=== PATIENT | male | born 1990 | race Caucasian/White ===

== ENCOUNTER 2019-01-18 20:16 | Emergency (ER) | payer BC ==
[2019-01-18] MEDS ORDERED: LIDOCAINE 1% 20 ML MDV ONE (20:29)
[2019-01-18] MEDS ORDERED: TETANUS & DIPHTHERIA TOX,ADULT 0.5 ML VIAL ONE (20:29)
--- NOTE | 2019-01-18 20:54 | RAD REPORT ---
EXAM DESCRIPTION: CT - [facility] - 01/18/2019 8:44 pm CLINICAL HISTORY: Trauma, head and neck injury. head injury COMPARISON: No comparisons TECHNIQUE: Axial 5 mm thick images of the head were obtained. Axial 2 mm thick images of the cervical spine were obtained with sagittal and coronal reconstruction images generated and reviewed. All CT scans are performed using dose optimization technique as appropriate and may include automated exposure control or mA/KV adjustment according to patient size. FINDINGS: CT HEAD WITHOUT CONTRAST: No acute hemorrhage, hydrocephalus or extra-axial collection is identified.No areas of brain edema or midline shift. The paranasal sinuses and mastoids are clear.The calvarium is intact. CT CERVICAL SPINE WITHOUT CONTRAST: No fracture or subluxation.No prevertebral soft tissues swelling is identified. IMPRESSION: No acute intracranial or cervical spine findings.
--- NOTE | 2019-01-18 21:27 | ER ---
Nurse's Notes [facility] Name: Kilo Moses Age: 29 yrs Sex: Male : 1990 Arrival Date: 01/18/2019 Time: 20:17 Bed 19 Private MD: Diagnosis: Right Eyebrow Laceration Presentation: 01/18 20:17 Presenting complaint: Patient states: I was angry and slammed a metal bat on the cc3 ground, It bounced up and hit me in the face. Laceration to right eyebrow, bleeding controlled. Transition of care: patient was not received from another setting of care. Complicating Factors: There are no complicating factors for this patient. Onset of symptoms was January 18, 2019. Risk Assessment: Do you want to hurt yourself or someone else? Patient reports no desire to harm self or others. Initial Sepsis Screen: Does the patient meet any 2 criteria? No. Patient's initial sepsis screen is negative. Does the patient have a suspected source of infection? No. Patient's initial sepsis screen is negative. Care prior to arrival: None. 20:17 Method Of Arrival: EMS: [facility] cc3 20:17 Acuity: JOSE 3 cc3 Triage Assessment: 20:25 General: Appears in no apparent distress. uncomfortable, Behavior is calm, cooperative, cc3 appropriate for age. Pain: Complains of pain in outer aspect of right eyebrow. Injury Description: Laceration sustained to outer aspect of right eyebrow is clean, superficial, 0.5 to 2.5 cm long, not bleeding, was sustained 30-60 minutes ago. is bleeding a small amount a dressing was applied. Historical: - Allergies: 20:19 No Known Allergies; cc3 - PMHx: 20:19 None; cc3 - Immunization history:: Adult Immunizations up to date. - Social history:: Smoking status: unknown. - Ebola Screening: : No symptoms or risks identified at this time. Screenin:25 Abuse screen: Denies threats or abuse. Denies injuries from another. Nutritional cc3 screening: No deficits noted. Tuberculosis screening: No symptoms or risk factors identified. Fall Risk Ambulatory Aid- None/Bed Rest/Nurse Assist (0 pts). Gait- Normal/Bed Rest/Wheelchair (0 pts) Mental Status- Oriented to own ability (0 pts). Assessment: 20:25 General: Appears in no apparent distress. uncomfortable, Behavior is calm, cooperative, cc3 appropriate for age. Pain: Complains of pain in outer aspect of right eyebrow. Neuro: Level of Consciousness is awake, alert, obeys commands, Oriented to person, place, time, situation, Appropriate for age Brand Strategist are equal bilaterally Moves all extremities. Gait is steady, Speech is normal, Facial symmetry appears normal, Pupils are PERRLA, Intact. Cardiovascular: Denies chest pain, Capillary refill < 3 seconds Patient's skin is warm and dry. Respiratory: Airway is patent Respiratory effort is even, unlabored, Respiratory pattern is regular, symmetrical. GI: Abdomen is round non-distended. : No signs and/or symptoms were reported regarding the genitourinary system. EENT: No signs and/or symptoms were reported regarding the EENT system. Derm: Skin is intact, is healthy with good turgor, Skin is pink, warm \T\ dry. normal. Musculoskeletal: Circulation, motion, and sensation intact. Range of motion: intact in all extremities. Injury Description: Laceration sustained to outer aspect of right eyebrow is clean, superficial, 0.5 to 2.5 cm long, not bleeding, was sustained 30-60 minutes ago. is bleeding a small amount. 21:40 Reassessment: Patient appears in no apparent distress at this time. Patient and/or cc3 family updated on plan of care and expected duration. Pain level reassessed. Patient is alert, oriented x 3, equal unlabored respirations, skin warm/dry/pink. DENIZ Montoya checked the wound suturing done by MANUEL Macedo and discharged the patient home, no prescription given. No IV cannula in situ. Patient left ER vitally stable and ambulatory. NO valuables left in the patient's room. Patient denies pain at this time. Patient states feeling better. Patient states symptoms have improved. Vital Signs: 20:19 BP 119 / 76; Pulse 83; Resp 16; Pulse Ox 98% on R/A; Weight 108.86 kg; Height 6 ft. 5 cc3 in. (195.58 cm); 21:30 BP 121 / 69; Pulse 80; Resp 16 S; Pulse Ox 99% on R/A; cc3 20:19 Body Mass Index 28.46 (108.86 kg, 195.58 cm) cc3 ED Course: 20:17 Patient arrived in ED. cc3 20:18 Triage completed. cc3 20:18 Shady Montoya PA is PHCP. [facility] 20:18 Mika Rankin MD is Attending Physician. [facility] 20:19 Arm band placed on right wrist. cc3 20:25 Elizabeth Irene is Primary Nurse. cc3 20:25 Patient has correct armband on for positive identification. Bed in low position. Call cc3 light in reach. Side rails up X 1. Pulse ox on. NIBP on. 21:00 Assist provider with laceration repair on outer aspect of right eyebrow that was cc3 between 2.6 to 7.5 cm using sutures. Set up tray. Performed by Shady GUAMAN Dressed with 4X4s, Patient tolerated well. Patient did not have IV access during this emergency room visit. 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 Exp: cc3 09/16/2020. Lot #: [id number]. } Route: IM; Site: right deltoid; 21:00 Follow up: Response: No adverse reaction cc3 21:00 Drug: Lidocaine (1 %) 20 ml {Note: administered by MANUEL Macedo.} Volume: 20 ml; Route: cc3 Infiltration; Site: affected area; 21:30 Follow up: Response: No adverse reaction cc3 Outcome: 21:26 Discharge ordered by . mika 21:40 Patient left the ED. cc3 21:40 Discharged to home ambulatory, with family. cc3 21:40 Condition: stable 21:40 Discharge instructions given to patient, Instructed on discharge instructions, follow up and referral plans. Demonstrated understanding of instructions, follow-up care. Signatures: Shady Montoya PA PA jmm Cordel, Charlene cc3
--- NOTE | 2019-01-18 21:27 | EDPHYS ---
Physician Documentation [facility] Name: Kilo Moses Age: 29 yrs Sex: Male : 1990 Arrival Date: 01/18/2019 Time: 20:17 Bed 19 Private MD: ED Physician Mika Rankin HPI: 01/18 20:20 This 29 yrs old Male presents to ER via EMS with complaints of Laceration To m Head. 20:20 The patient or guardian reports injury, a laceration. The complaints affect the outer jmm aspect of right eyebrow. Onset: The symptoms/episode began/occurred acutely, just prior to arrival. Associated signs and symptoms: Loss of consciousness: This patient did not experience any loss of consciousness. Pertinent positives: patient admits to or smells of alcohol consumption, Pertinent negatives: neck pain. Patient states hitting his head after slamming softball bat against the ground hitting his face. Denies LOC. Historical: - Allergies: 20:19 No Known Allergies; cc3 - PMHx: 20:19 None; cc3 - Immunization history:: Adult Immunizations up to date. - Social history:: Smoking status: unknown. - Ebola Screening: : No symptoms or risks identified at this time. ROS: 20:20 Constitutional: Negative for fever, chills, and weight loss, Neck: Negative for injury, jmm pain, and swelling, Cardiovascular: Negative for chest pain, palpitations, and edema, Respiratory: Negative for shortness of breath, cough, wheezing, and pleuritic chest pain. 20:20 Skin: Positive for laceration(s). 20:20 Neuro: Negative for headache. 20:20 All other systems are negative. Exam: 20:20 Constitutional: This is a well developed, well nourished patient who is awake, alert, jmm and in no acute distress. 20:20 Eyes: EOMI, no conjunctival erythema appreciated ENT: Moist Mucus Membranes Neck: Trachea midline, Supple Chest/axilla: Normal chest wall appearance and motion. Cardiovascular: Regular rate and rhythm. No edema appreciated Respiratory: Normal respirations, no respiratory distress appreciated Abdomen/GI: Non distended, soft Back: Normal ROM 20:20 MS/ Extremity: Moves all extremities, no obvious deformities appreciated, no edema noted to the lower extremities Neuro: Awake and alert, normal gait Psych: Behavior is normal, Mood is normal, Patient is cooperative and pleasant 20:20 Head/face: 3 cm laceration noted to the right eyebrow. 20:20 Skin: 3 cm laceration noted to the right eyebrow. Vital Signs: 20:19 BP 119 / 76; Pulse 83; Resp 16; Pulse Ox 98% on R/A; Weight 108.86 kg; Height 6 ft. 5 cc3 in. (195.58 cm); 21:30 BP 121 / 69; Pulse 80; Resp 16 S; Pulse Ox 99% on R/A; cc3 20:19 Body Mass Index 28.46 (108.86 kg, 195.58 cm) cc3 Laceration: 21:29 Wound Repair of 3cm ( 1.2in ) subcutaneous laceration to outer aspect of right eyebrow. jmm Distal neuro/vascular/tendon intact. Anesthesia: Local anesthetic administered with 5 mls of 1% lidocaine. Wound prep: Extensive cleansing with betadine by me. Skin closed with 6 5-0 Prolene using simple sutures and sterile technique. Patient tolerated well. MDM: 20:20 Patient medically screened. [facility] 21:25 Data reviewed: vital signs, nurses notes. Counseling: I had a detailed discussion with [facility] the patient and/or guardian regarding: the historical points, exam findings, and any diagnostic results supporting the discharge/admit diagnosis, radiology results, the need for outpatient follow up, to return to the emergency department if symptoms worsen or persist or if there are any questions or concerns that arise at home. ED course: Patient given head injury and wound infection return precautions. . 01/18 20:19 Order name: Head Brain Wo Cont CT [facility] 01/18 20:19 Order name: CT C Spine [facility] 01/18 20:22 Order name: Prolene, Sutures; Complete Time: 20:49 [facility] 01/18 20:56 Order name: CT; Complete Time: 21:25 [facility] 01/18 20:22 Order name: Dressing - Wound; Complete Time: 21:39 [facility] 01/18 20:22 Order name: Gloves, Sterile; Complete Time: 20:49 [facility] 01/18 20:22 Order name: Setup Suture Tray; Complete Time: 20:49 [facility] Administered Medications: 20:45 Drug: Tetanus-Diphtheria Toxoid Adult 0.5 ml {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 Exp: cc3 09/16/2020. Lot #: [id number]. } Route: IM; Site: right deltoid; 21:00 Follow up: Response: No adverse reaction cc3 21:00 Drug: Lidocaine (1 %) 20 ml {Note: administered by MANUEL Macedo.} Volume: 20 ml; Route: cc3 Infiltration; Site: affected area; 21:30 Follow up: Response: No adverse reaction cc3 Disposition: 21:50 Co-signature as Attending Physician, Mika Rankin MD. rn Disposition: 01/18/19 21:26 Discharged to Home. Impression: Right Eyebrow Laceration. - Condition is Stable. - Discharge Instructions: Head Injury, Adult, Facial Laceration. - Medication Reconciliation Form, Thank You Letter, Antibiotic Education, Prescription Opioid Use form. - Follow up: Private Physician; When: 2 - 3 days; Reason: Recheck today's complaints, Continuance of care, Re-evaluation by your physician. Signatures: Dispatcher [employer] EDMS Shady Montoya PA PA jmm Nieto, Roman, MD MD rn Cordel, Charlene 3 Corrections: (The following items were deleted from the chart) 21:29 20:20 Skin: 3 cm laceration noted to the right eyebrow. mika [facility] 21:40 21:26 01/18/2019 21:26 Discharged to Home. Impression: Right Eyebrow Laceration. cc3 Condition is Stable. Forms are Medication Reconciliation Form, Thank You Letter, Antibiotic Education, Prescription Opioid Use. Follow up: Private Physician; When: 2 - 3 days; Reason: Recheck today's complaints, Continuance of care, Re-evaluation by your physician. mika
[2019-01-18 22:56] VITALS: BP 119/76; O2SAT 98
== END 2019-01-18 21:40 | disposition home or self-care (01) ==
LOC: ER 20:16
PROC: 0JQ10ZZ Repair Face Subcutaneous Tissue and Fascia, Open Approach (ICD-10-PCS; principal; 2019-01-18)
DX: S01.111A Laceration without foreign body of right eyelid and periocular area, initial encounter (principal); W22.8XXA Striking against or struck by other objects, initial encounter; Y93.89 Activity, other specified; Y92.9 Unspecified place or not applicable; Z23 Encounter for immunization
CPT/HCPCS: 70450; 72125; 90471; 90714; 99284

== ENCOUNTER 2024-03-08 00:39 | Emergency (ER) | payer BC ==
--- OUTSIDE RECORDS SUMMARY | 2024-03-08 00:42 | XMS REPORT | Continuity of Care Document ---
Author Name Unknown Address [address] [facility] [address] [place] [address] [facility] Address [address] [facility] [address] [place] [address] Care Team Providers Care Research Test Engine Operator Name Role Phone RUBEN HANSON JR Primary Care Physician KASANDRA Huertas Attending Clinician Unavailable KASANDRA LEONARDO Attending Clinician Unavailable KYLE HEMPHILL Attending Clinician Unavailab le Doctor Unassigned, [place] Attending Clinician U Gloria Huggins Attending Clinician + [phone] GLORIA CHAMBERS Attending Clinician Unavaila ble Lab, c Attending Clinician Unavailable Kyle Hemphill DO Attending Clinician [phone] Lonny Isaacs MD Attending Clinician [phone] Clinic, Gastroenterology Attending Clinician + [phone] TJ WU Attending Clinician Unavailable TJ WU Attending Clinician Unavailable Only, Ang Db Test Attending Clinician UnavailSd Rhodes PA-C Attending Clinician [phone] SD HEALY Attending Clinician Unavailable AYNELI DE PAZ Attending Clinician Unavailable Yaneli De Paz MD Attending Clinician [phone] Only, Adc Test Attending Clinician Unavailable Gramm Kasandra GALAVIZ Attending Clinician [phone] Renata Hernandez Attending Clinician [phone] Lab, Adc Fam Pob I Attending Clinician UnavailCamden Swift Attending Clinician + [phone] CAMDEN SUGGS Attending Clinician UnavailKASANDRA Salazar Admitting Clinician Unavailable Kasandra Leonardo MD Admitting Clinician [phone] GLORIA CHAMBERS Admitting Clinician UnavailTJ Broderick Admitting Clinician Unavailable Yaneli De Paz MD Admitting Clinician YANELI DE PAZ Admitting Clinician Unavailable Payers Payer Name Policy Type Policy Number Effective Date Expirati on Date Source [employer] [place] OUT [employer] [place] [id number] 2020 00:00:00 Problems Condition Name Condition Details Condition Category Status Onset Date Resolution Date Last Treatment Date Treating Clinician Comments Source Internal and external bleeding hemorrhoid s Internal and external bleeding hemorrhoid s Disease Active 08-07 00:00: 00 [facility] Rectal pain Rectal pain Disease Active 2020-05 00:00: 00 Overview: Formattin g of this note might be different from the original. Added automatic ally from request for surgery [id number] [facility] Rectal bleeding Rectal bleeding Disease Active 2020-05 00:00: 00 Overview: Formattin g of this note might be different from the original. Added automatic ally from request for surgery [id number] [facility] Allergies, Adverse Reactions, Alerts Allergy Name Allergy Type Status Severity Reaction(s) Onset Date Inactive Date Treating Clinician Comments Source NO KNOWN ALLERGIE S Drug Class Active [facility] Social History Social Habit Start Date Stop Date Quantity Comments Source History of tobacco use Cigarette Smoker [facility] Alcohol intake 2023-08-08 00:00:00 2023-08-08 00:00:00 4 /d [facility] History of Social function 2023-07-26 00:00:00 2023-07-26 00:00:00 [facility] Tobacco use and exposure 2023-07-23 00:00:00 2023-07-23 00:00:00 Smokeless tobacco non-user [facility] Tobacco Comment 2023-05-28 00:00:00 2023-05-28 00:00:00 Vapes, quit cigarettes in 2020 [facility] Exposure to SARS-CoV-2 (event) 2021-10-25 00:00:00 2021-11-04 14:06:00 Not sure [facility] Sex Assigned At 1990 00:00:00 1990 00:00:00 [facility] Smoking Status Start Date Stop Date Source Smokes tobacco daily 2023-07-23 00:00:00 [facility] Ex-smoker 2023-05-28 00:00:00 2023-05-28 00[facility]00[facility]00 [facility] Medications Ordered Medication Name Filled Medication Name Start Date Stop Date Current Medication? Ordering Clinician Indication Dosage Frequency Signature (SIG) Comments Components Source oxyCODONE 5 mg immediate release tablet 08-07 08:38: 27 Yes 5mg Take 1 tablet by mouth every 6 (six) hours as needed. [facility] iron sucrose (VENOFER) 100 mg in NaCl 0.9% (NS) 100 mL infusion 07-25 16:30: 00 07-25 17:32 :00 No 100mg 100 mg, IV Infusion, ONCE, Administer over 1.5 Hours, On Sat07/26/23 at 1130, For 1 dose [facility] HYDROcodone -acetaminop hen (NORCO 5) 5-325 mg tablet 1 tablet 07-25 14:09: 59 Yes 1{tbl} 1 tablet, Oral, PRN, 1 dose, Starting on Sat07/26/23 at 0909, Until Discontinu ed, Routine, Pain (scale 4-6), DSU Recovery [facility] acetaminoph en (TYLENOL) tablet 650 mg 07-25 14:09: 59 Yes 650mg 650 mg, Oral, PRN, 1 dose, Starting on Sat07/26/23 at 0909, Until Discontinu ed, Routine, Pain (scale 1-3), DSU Recovery [facility] ondansetron (ZOFRAN (PF)) injection 4 mg 07-25 14:09: 59 Yes 4mg 4 mg, Slow IV Push, PRN, 1 dose, Starting on Sat07/26/23 at 0909, Until Discontinu ed, Routine, Nausea and Vomiting (N/V), DSU Recovery [facility] HYDROcodone -acetaminop hen (NORCO) 10-325 mg tablet 1 tablet 07-25 14:09: 59 07-25 14:28 :00 No 1{tbl} 1 tablet, Oral, PRN, 1 dose, Starting on Sat07/26/23 at 0909, Until Sat07/26/23 at 0928, Routine, Pain (scale 7-10), DSU Recovery [facility] HYDROmorphO ne (DILAUDID) injection 0.2 mg 07-25 14:09: 27 Yes .2mg 0.2 mg, Slow IV Push, Q5MIN PRN, 10 doses, Starting on Sat07/26/23 at 0909, Until Discontinu ed, Routine, Pain (scale 7-10), PACU
Us e approved by (Faculty): PACU USE -ANESTHESI A SERVICE-HY DROMORPHON E INJECTIONS [facility] FENTanyl PF (SUBLIMAZE (PF)) injection 25 mcg 07-25 14:09: 27 Yes 25ug 25 mcg, Slow IV Push, Q5MIN PRN, 4 doses, Starting on Sat07/26/23 at 0909, Until Discontinu ed, Routine, Pain (scale 4-6), PACU [facility] ondansetron (ZOFRAN (PF)) injection 4 mg 07-25 14:09: 27 Yes 4mg 4 mg, Slow IV Push, PRN, 1 dose, Starting on Sat07/26/23 at 0909, Until Discontinu ed, Routine, Nausea and Vomiting (N/V), PACU [facility] lidocaine (XYLOCAINE) 2 % jelly URO-JET 07-25 13:37: 00 Yes PRN, Starting on Sat07/26/23 at 0837, Until Discontinu ed, Routine, Intra-op [facility] lactated ringers IV infusion 1,000 mL 07-25 11:30: 00 2024- 03-22 11:45 :00 No 1000mL at 42 mL/hr, 1,000 mL, IV Infusion, ONCE, 1 dose, On Sat07/26/23 at 0630, Routine, DSU Pre-op [facility] gabapentin (NEURONTIN) capsule 300 mg 2023-07-25 11:24: 39 07-25 11:34 :00 No 300mg 300 mg, Oral, O.R. HOLDING ONCE, 1 dose, Starting on Sat07/26/23 at 0624, Until Sat07/26/23 at 0634, Routine, Surgery/Pr ocedure, DSU Pre-op [facility] acetaminoph en (TYLENOL) tablet 650 mg 07-25 11:24: 39 07-25 11:34 :00 No 650mg 650 mg, Oral, O.R. HOLDING ONCE, 1 dose, Starting on Sat07/26/23 at 0624, Until Sat07/26/23 at 0634, Routine, Surgery / Procedure, DSU Pre-op [facility] gabapentin 300 mg capsule 07-25 00:00: 00 08-10 04:59 :00 No [id number] 300mg Take 1 capsule by mouth in the morning and 1 capsule at noon and 1 capsule in the evening. Do all this for 15 days. For pain scale 1-3 [facility] ibuprofen 600 mg tablet 07-25 00:00: 00 08-10 04:59 :00 No [id number] 600mg Take 1 tablet by mouth every 8 (eight) hours for 15 days. [facility] acetaminoph en 325 mg tablet 07-25 00:00: 00 08-10 04:59 :00 No [id number] 975mg Take 3 tablets by mouth every 8 (eight) hours for 15 days. [facility] methocarbam oL 500 mg tablet 07-25 00:00: 00 08-10 04:59 :00 No [id number] 500mg Take 1 tablet by mouth 4 (four) times daily for 15 days. [facility] oxyCODONE 5 mg immediate release tablet 07-25 00:00: 00 08-02 04:59 :00 No [id number] 5mg Take 1 tablet by mouth every 6 (six) hours as needed for Pain (scale 7-10) for up to 7 days. Indication s: acute pain [facility] iopamidol (ISOVUE 370-500 mL) injection 80 mL 06-03 17:25: 00 06-03 17:29 :00 No [id number] 80mL 80 mL, Intravenou s, ONCE, 1 dose, On Sat06/03/23 at 1130, Routine [facility] pantoprazol e 40 mg EC tablet 05-28 00:00: 00 Yes [id number] 40mg Take 1 tablet by mouth in the morning. [facility] hydrocortis one 25 mg suppository 05-28 00:00: 00 07-25 00:00 :00 No [id number] 25mg Insert 1 Suppositor y into rectum in the morning and 1 Suppositor y in the evening. [facility] NaCl 0.9% (NS) bolus infusion 500 mL 05-24 02:15: 00 05-24 02:42 :00 No 500mL at 999 mL/hr, 500 mL, IV Infusion, ONCE, 1 dose, On Sat05/23/23 at 2015, CLAUDIA [facility] ferrous sulfate 325 mg (65 mg iron) EC tablet 05-23 00:00: 00 07-25 00:00 :00 No [id number] 325mg Take 1 tablet by mouth in the morning and 1 tablet at noon and 1 tablet in the evening. Take with meals. [facility] psyllium-altamirano crose (METAMUCIL, SUGAR,) powder 2020-05 00:00: 00 Yes [id number] 1{packe t} Take 1 Packet by mouth 3 (three) times daily. [facility] psyllium-altamirano crose (METAMUCIL, SUGAR,) powder 2020-05 00:00: 00 07-25 00:00 :00 No [id number] 1{packe t} Take 1 Packet by mouth 3 (three) times daily. [facility] docusate (COLACE) 100 mg capsule 2020-05 2 00:00: 00 07-25 00:00 :00 No [id number] 100mg Take 1 capsule by mouth 2 (two) times daily. [facility] Lidocaine-H ydrocortiso ne Ac 3-1 % (7 gram) Kit 2020-05 0 00:00: 00 05-28 00:00 :00 No [id number] 1{appli cator} Insert 1 Applicator into rectum 2 (two) times daily. [facility] Vital Signs Vital Name Observation Time Observation Value Comments S ource Systolic blood pressure 2023-08-08 13:36:00 112 mm[Hg] [facility] Diastolic blood pressure 2023-08-08 13:36:00 68 mm[Hg] [facility] Heart rate 2023-08-08 13:36:00 81 /min [facility] Body temperature 2023-08-08 13:36:00 35.78 Mila [facility] Respiratory rate 2023-08-08 13:36:00 20 /min [facility] Body height 2023-08-08 13:36:00 195.6 cm [facility] Body weight 2023-08-08 13:36:00 115.214 kg [facility] BMI 2023-08-08 13:36:00 30.12 kg/m2 [facility] Oxygen saturation in Arterial blood by Pulse oximetry 2023-08-08 13:36:00 99 /min [facility] Systolic blood pressure 2023-07-26 17:36:00 113 mm[Hg] [facility] Diastolic blood pressure 2023-07-26 17:36:00 68 mm[Hg] [facility] Heart rate 2023-07-26 17:36:00 73 /min [facility] Respiratory rate 2023-07-26 17:36:00 15 /min [facility] Oxygen saturation in Arterial blood by Pulse oximetry 2023-07-26 17:36:00 98 /min [facility] Body temperature 2023-07-26 13:54:00 36.33 Mila [facility] Body height 2023-07-25 13:00:00 195.6 cm [facility] Body weight 2023-07-25 13:00:00 116.574 kg [facility] BMI 2023-07-25 13:00:00 30.48 kg/m2 [facility] Systolic blood pressure 2023-05-29 19:29:00 106 mm[Hg] [facility] Diastolic blood pressure 2023-05-29 19:29:00 56 mm[Hg] [facility] Heart rate 2023-05-29 19:29:00 89 /min Unive [facility] Body temperature 2023-05-29 19:29:00 36.67 Mila [facility] Body height 2023-05-29 19:29:00 195.6 cm [facility] Body weight 2023-05-29 19:29:00 117.028 kg [facility] BMI 2023-05-29 19:29:00 30.59 kg/m2 [facility] Oxygen saturation in Arterial blood by Pulse oximetry 2023-05-29 19:29:00 100 /min [facility] Systolic blood pressure 2023-05-28 16:16:00 112 mm[Hg] [facility] Diastolic blood pressure 2023-05-28 16:16:00 65 mm[Hg] [facility] Heart rate 2023-05-28 16:16:00 81 /min [facility] Body temperature 2023-05-28 16:16:00 36.28 Mila [facility] Respiratory rate 2023-05-28 16:16:00 18 /min [facility] Body height 2023-05-28 16:16:00 195.6 cm [facility] Body weight 2023-05-28 16:16:00 116.665 kg [facility] BMI 2023-05-28 16:16:00 30.50 kg/m2 [facility] Oxygen saturation in Arterial blood by Pulse oximetry 2023-05-28 16:16:00 99 /min [facility] Systolic blood pressure 2023-05-24 06:30:00 115 mm[Hg] [facility] Diastolic blood pressure 2023-05-24 06:30:00 72 mm[Hg] [facility] Heart rate 2023-05-24 06:30:00 70 /min Unive [facility] Body temperature 2023-05-24 06:30:00 36.72 Mila [facility] Respiratory rate 2023-05-24 06:30:00 18 /min [facility] Oxygen saturation in Arterial blood by Pulse oximetry 2023-05-24 06:30:00 97 /min [facility] Body height 2023-05-24 01:19:00 195.6 cm [facility] Body weight 2023-05-24 01:19:00 124.286 kg [facility] BMI 2023-05-24 01:19:00 32.49 kg/m2 [facility] Systolic blood pressure 2021-04-24 17:05:00 107 mm[Hg] [facility] Diastolic blood pressure 2021-04-24 17:05:00 66 mm[Hg] [facility] Heart rate 2021-04-24 17:05:00 60 /min [facility] Body temperature 2021-04-24 17:05:00 36.67 Mila [facility] Respiratory rate 2021-04-24 17:05:00 21 /min [facility] Body height 2021-04-24 17:05:00 195.6 cm [facility] Body weight 2021-04-24 17:05:00 112.674 kg [facility] BMI 2021-04-24 17:05:00 29.46 kg/m2 [facility] Oxygen saturation in Arterial blood by Pulse oximetry 2021-04-24 17:05:00 95 /min [facility] Procedures Procedure Date / Time Performed Performing Clinician Source BASIC METABOLIC PANEL (NA, K, CL, CO2, GLUCOSE, BUN, CREATININE, CA) 2023-07-26 11:42:00 Kamini Thomas [facility] CBC WITH DIFF 2023-07-26 11:42:00 Kamini Thomas [facility] CT ABDOMEN PELVIS W CONTRAST 2023-06-03 17:28:57 Gloria Chambers [facility] PATIENT QUESTIONNAIRE 2023-05-29 06:01:00 Doctor Unassigned, [place] [facility] EKG-12 LEAD 2023-05-24 05:06:40 Tj Wu [facility] TRANSFUSE PACKED RBC 2023-05-24 03:45:00 Mannie Wu [facility] PREPARE PACKED RBC 2023-05-24 03:27:33 Tj Wu [facility] ABORH CONFIRMATION (LAB ONLY) 2023-05-24 02:41:00 Tj Wu [facility] IRON PANEL 2023-05-24 02:00:00 Tj Wu [facility] XR CHEST 1 VW 2023-05-24 01:45:36 Tj Wu [facility] TROPONIN I 2023-05-24 01:31:00 Tj Wu [facility] COMP. METABOLIC PANEL (33131) 2023-05-24 01:31:00 Tj Wu [facility] SEDIMENTATION RATE 2023-05-24 01:31:00 Tj Wu [facility] CBC WITH DIFF 2023-05-24 01:31:00 Tj Wu [facility] PROTHROMBIN TIME / INR 2023-05-24 01:31:00 Marek Wu [facility] ACTIVATED PARTIAL THRMPLAS FLORESITA 2023-05-24 01:31:00 Tj Wu [facility] HB ABO GROUPING 2023-05-24 01:31:00 Tj Wu [facility] N-TERMINAL PRO-BNP 2023-05-24 01:31:00 Jazmin Tj [facility] NOTICE OF PRIVACY PRACTICES 2023-05-24 01:11:55 Doctor Unassigned, [place] [facility] CONSENT/REFUSAL FOR DIAGNOSIS AND TREATMENT 2023-05-24 01:09:12 Doctor Unassigned, [place] [facility] DME/SUPPLY JUSTIFICATION 2021-04-24 06:01:00 Doc tor Unassigned, [place] [facility] Encounters Start Date/Time End Date/Time Encounter Type Admission Type Attending [facility] Care Facility Care Department Encounter ID Source 2023-06-27 15:59:00 Outpatient [facility] [id number] [facility] 2021-03-07 03:14:36 Emergency [facility] [id number] [facility] 2023-11-14 08:30:00 2023-11-14 08:30:00 Outpatient KASANDRA BERUMEN PAMELA [facility] [id number] [facility] 2023-08-08 08:45:00 2023-08-08 09:02:59 Outpatient KASANDRA BERUMEN [facility] [id number] [facility] 2023-08-08 08:45:00 2023-08-08 09:02:59 Office Visit Kasandra Leonardo [facility] 1..840.114 350.1.13.10 4.2.7.2.686 [id number] [facility] 2023-07-30 14:45:00 2023-07-30 14:45:00 Outpatient KASANDRA BERUMEN [facility] [id number] [facility] 2023-07-26 06:23:00 2023-07-26 12:50:00 Outpatient KASANDRA BERUMEN [facility] [id number] [facility] 2023-07-26 06:23:00 2023-07-26 12:50:00 Hospital Encounter Kasandra Leonardo [facility] 1..840.114 350.1.13.10 4.2.7.2.686 [id number] [facility] 2023-07-02 10:30:00 2023-07-02 10:30:00 Outpatient R KYLE HEMPHILL [facility] [id number] [facility] 2023-06-17 00:00:00 2023-06-17 00:00:00 Patient Secure Msg Doctor Unassigned, [place] [facility] 1.2.840.114 350.1.13.10 4.2.7.2.686 [id number] [facility] 2023-06-12 00:00:00 2023-06-12 00:00:00 Prep For Surgery Ayaka Chambersemily [facility] 1.2.840.114 350.1.13.10 4.2.7.2.686 [id number] [facility] 2023-06-11 00:00:00 2023-06-11 00:00:00 Telephone Gloria Chambers [facility] 1.2.840.114 350.1.13.10 4.2.7.2.686 [id number] [facility] 2023-06-05 00:00:00 2023-06-05 00:00:00 Telephone Gloria Chambers [facility] 1.2.840.114 350.1.13.10 4.2.7.2.686 [id number] [facility] 2023-06-03 10:49:07 2023-06-03 23:59:00 Outpatient R GLORIA CHAMBERS [facility] [id number] [facility] 2023-06-03 10:49:07 2023-06-03 23:59:00 Hospital Encounter Akil Chambersfeltonemily [facility] 1.2.840.114 350.1.13.10 4.2.7.2.686 [id number] [facility] 2023-05-29 13:30:00 2023-05-29 14:15:50 Outpatient R GLORIA CHAMBERS [facility] [id number] [facility] 2023-05-29 13:30:00 2023-05-29 14:15:50 Office Visit Gloria Chambers [facility] 1.0.114 350.1.13.10 4.2.7.2.686 [id number] [facility] 2023-05-29 00:00:00 2023-05-29 00:00:00 Orders Only Doctor Unassigned, [place] [facility] 1.0.114 350.1.13.10 4.2.7.2.686 [id number] [facility] 2023-05-28 12:30:00 2023-05-28 12:45:00 Still Runner Visit Lab, [facility] Kyle Hemphill [facility] 1..114 350.1.13.10 4.2.7.2.686 [id number] [facility] 2023-05-28 10:30:00 2023-05-28 11:14:27 Outpatient R KYLE HEMPHILL [facility] [id number] [facility] 2023-05-28 10:30:00 2023-05-28 11:14:27 Office Visit Lonny Isaacs Gurinder K [facility] 1..114 350.1.13.10 4.2.7.2.686 [id number] [facility] 2023-05-27 00:00:00 2023-05-27 00:00:00 Letter (Out) Clinic, Gastroenter ology [facility] 1.0.114 350.1.13.10 4.2.7.2.686 [id number] [facility] 2023-05-23 19:23:00 2023-05-24 00:35:00 Emergency X TJ WU, TJ [facility] [id number] [facility] 2023-05-23 19:23:00 2023-05-24 00:35:00 Emergency Tj Wu [facility] 1.2.840.114 350.1.13.10 4.2.7.2.686 [id number] [facility] 2021-11-04 14:15:00 2021-11-04 14:30:00 Laboratory Only Only, Ang Db [facility] 1.840.114 350.1.13.10 4.2.7.2.686 [id number] [facility] 2021-11-04 14:15:00 2021-11-04 14:21:[address] [facility] [id number] [facility] 2021-05-23 15:30:00 2021-05-23 15:30:00 Outpatient R YANELI DE PAZ [facility] [id number] [facility] 2021-04-24 10:45:00 2021-04-24 11:51:04 Outpatient R YANELI DE PAZ [facility] [id number] [facility] 2021-04-24 10:45:00 2021-04-24 11:51:04 Office Visit Yaneli De Paz [facility] 1..840.114 350.1.13.10 4.2.7.2.686 [id number] [facility] 2021-04-24 00:00:00 2021-04-24 00:00:00 Orders Only Doctor Unassigned, [place] [facility] 1.2.840.114 350.1.13.10 4.2.7.2.686 [id number] [facility] 2021-04-10 11:18:00 2021-04-10 13:26:00 Hospital Encounter Yaneli De Paz [facility] 1.2.840.114 350.1.13.10 4.2.7.2.686 [id number] [facility] 2021-04-10 11:18:00 2021-04-10 13:26:00 Outpatient R YANELI DE PAZ [facility] [id number] [facility] 2021-04-10 12:24:00 2021-04-10 13:22:00 Surgery Bal[facility] 1.2.840.114 350.1.13.10 4.2.7.2.686 [id number] [facility] 2021-04-07 10:56:41 2021-04-07 11:11:41 Laboratory Only Only[facility] 1.2.840.114 350.1.13.10 4.2.7.2.686 [id number] [facility] 2021-04-07 11:00:00 2021-04-07 11:00:00 Outpatient R YANELI DE PAZ [facility] [id number] [facility] 2021-04-06 00:00:00 2021-04-06 00:00:00 Orders Only Doctor Unassigned, [place] [facility] 1.2840.114 350.1.13.10 4.2.7.2.686 [id number] [facility] 2021-03-14 13:15:00 2021-03-14 15:19:43 Outpatient R YANELI DE PAZ [facility] [id number] [facility] 2021-03-14 13:11:02 2021-03-14 15:19:43 Office Visit Yaneli De Paz [facility] 1.2.840.114 350.1.13.10 4.2.7.2.686 [id number] [facility] 2021-03-14 00:00:00 2021-03-14 00:00:00 Orders Only Doctor Unassigned, [place] [facility] 1.2840.114 350.1.13.10 4.2.7.2.686 [id number] [facility] 2021-03-14 00:00:00 2021-03-14 00:00:00 Prep For Surgery Kasandra Villegas [facility] 1.0.114 350.1.13.10 4.2.7.2.686 [id number] [facility] 2021-02-03 18:22:00 2021-02-03 22:15:00 Emergency Renata Bruno [facility] 1.0.114 350.1.13.10 4.2.7.2.686 [id number] [facility] 2020-07-04 17:46:27 2020-07-04 18:06:27 Laboratory Only Lab, Adc Fam Pob I Camden Suggs [facility] 1..114 350.1.13.10 4.2.7.2.686 [id number] [facility] 2020-07-04 17:40:00 2020-07-04 17:40:00 Outpatient R CAMDEN SUGGS [facility] [id number] [facility] 2020-07-04 00:00:00 2020-07-04 00:00:00 Letter (Out) Doctor Unassigned, [place] [facility] 1.20.114 350.1.13.10 [phone] [id number] [facility] Results Test Description Test Time Test Comments Results Result Co mments Source [facility] (NA, K, CL, CO2, Glucose, BUN, Creatinine, CA)2023-07-26 12:14:24* Test Item Value Reference Range Interpretation Comme nts NA (test code = 6708596584) 141 mmol/L 135-145 K (test code = 8811583785) 4.3 mmol/L 3.5-5.0 CL (test code = 8347781912) 110 mmol/L 98-108 H CO2 TOTAL (test code = 1122825602) 24 mmol/L 23-31 AGAP (test code = 3035980073) 7 2-16 BUN (test code = 5167238544) 20 mg/dL 7-23 GLUCOSE (test code = 3710694601) 105 mg/dL 70-110 CREATININE (test code = 2160-0) 1.06 mg/dL 0.60-1.25 CALCIUM (test code = 4125836153) 9.1 mg/dL 8.6-10.6 eGFR (test code = 96603-2) 93.9 mL/min/1.73m2 CKD-EPI eGFR (2020). Assuming creatinine has been stable day-to-day for at least three months, the eGFR indicates Category G1 (>= 90 mL/min/1.73 m2) Lab Interpretation (test code = 65467-5) [facility]normal [facility] [id number] 20:01:04EXAM: CT ABDOMEN PELVIS W CONTRAST HISTORY: 33 years -old Male with Abdominal pain, acute, nonlocalized COMPARISON: None. TECHNIQUE: Contiguous axial imaging from the level of the lung basesthrough the proximal thighs was performed after intravenous contrastadministration. Coronal and sagittal recon structions were obtained. ? FINDINGS: LOWER THORAX: The lung bases are essentially clear. No cardiomegaly. LIVER: No focal hepatic lesions. Normal contour. GALLBLADDER AND BILIARY TREE: No intra or extrahepatic biliary ductaldilation. SPLEEN: Unremarkable. PANCREAS: No ductal dilatation or masses ADRENAL GLANDS: No adrenal lesions. KIDNEYS: No hydronephrosis, stones, or masses. Homogeneous and symmetricalenhancement. GI TRACT: Type 1 hiatal hernia. No dilation or bowel wall thickening.The appendix is normal. PERITONEUM AND RETROPERITONEUM: No free air or fluid collection. LYMPH NODES: No intra- abdominal or pelvic lymph node enlargement. PELVIS/BLADDER: Bladder is fully distended with no wall thickening. Theprostate is normal in size with internal calcification. VESSELS: Unremarkable. BONES AND SOFT TISSUES: No suspicious lytic or sclerotic bony lesions.[facility] 2023-05-24 03:44:56* Test Item Value Reference Range Interpretation Comme nts IRON (test code = 1544220628) 37 ug/dL 50-160 L TIBC (test code = 9525826399) 408 ug/dL 250-410 % FE SAT (test code = 7250050827) 9 % 20-50 L Lab Interpretation (test cod e = 28754-7) Abnormal [facility] Packed RBC (in units), 1 Units 2023-05-24 03:27:33* Test Item Value Reference Range Interpretation Comme nts Cross Match Result (test code = 4409) Compatible ISBT Blood Type Code (test code = 269102) 5100 Unit Blood Type (test code = 4410) O Pos Unit Number (test code = 4411) [id number] Blood Expiration Date & Time (test code = 944421) [id number] Status Information (test code = 4412) Issued Product Identification (test code = 4413) Red Blood Cells Product Code (test code = 4414) [id number] Performed at [facility] B Laboratory Services - [facility] Blood [address] [place], [place] [address]Toll Free: [phone] No. [id number] [facility] HospitalSedimentation [id number] 03:04:23* Test Item Value Reference Range Interpretation Comme nts ESR (test code = 86375-6) 29 See_Comment H [Automated messa ge] The system which generated this result transmitted reference range: 0 - 10 mm/HR. The reference range was not used to interpret this result as normal/abnormal. Lab Interpretation (test code = 33453-2) Abnormal [facility] HospitalABORH Confirmation (Lab Only)2023-05-24 02:54:00* Test Item Value Reference Range Interpretation Comme nts ABO & RH (test code = 20) O Positive [facility] HospitalXR CHEST 1 [id number] 02:38:20History: ?dyspnea ? Technique: XR CHEST 1 VW was obtained Prior exam: ?None Findings: No consolidations or effusions. ?Heart is normal. ?Tracheal air column ispatent. ?Aorta is normal in size. ?No pneumothorax. ? Included bones areintact. [facility] HospitalTROPONIN [id number] 02:34:30* Test Item Value Reference Range Interpretation Comme nts TROPONIN I (test code = 1763058483) 0.007 ng/mL <=0.034 PASCUAL (test code = PASCUAL) Reference (Normal) Range (defined by the 99th percentile reference limit): <= 0.034 ng/mL Note: Cardiac troponin begins to rise 3-4 hours after the onset of ischemia. Repeat in 4-6 hours if the sample was drawn within 3-4 hours of the onset of the symptom and found normal. Diagnosis of myocardial injury is made with acute changes in cTn concentrations with at least one serial sample above the 99th percentile upper reference limit (URL), taken together with the patient's clinical presentation. Biotin has been reported to cause a negative bias, interpret results relative to patient's use of biotin. Lab Interpretation (test code = 72517-0) Normal [facility] HospitalN-TERMINAL [id number] 02:31:48* Test Item Value Reference Range Interpretation Comme nts NT-proBNP (test code = 48444-7) 25 pg/mL <=125 Lab Interpretation (test cod e = 12802-4) Normal [facility] HospitalCOMP. METABOLIC PANEL (30506)2023-05-24 02:22:49* Test Item Value Reference Range Interpretation Comme nts NA (test code = 9254088080) 142 mmol/L 135-145 K (test code = 5146786249) 3.8 mmol/L 3.5-5.0 CL (test code = 3631750750) 107 mmol/L 98-108 CO2 TOTAL (test code = 0857548524) 24 mmol/L 23-31 AGAP (test code = 5593616339) 11 2-16 BUN (test code = 2366512456) 24 mg/dL 7-23 H GLUCOSE (test code = 9304757237) 93 mg/dL 70-110 CREATININE (test code = 9704777306) 1.34 mg/dL 0.60-1.25 H TOTAL BILI (test code = 0507787908) 0.3 mg/dL 0.1-1.1 CALCIUM (test code = 8840675808) 9.2 mg/dL 8.6-10.6 T PROTEIN (test code = 3611604699) 7.7 g/dL 6.3-8.2 ALBUMIN (test code = 0427361554) 4.6 g/dL 3.5-5.0 ALK PHOS (test code = 3430524738) 61 U/L 34-122 ALTv (test code = 1742-6) 35 U/L 5-50 AST(SGOT) (test code = 1902884959) 34 U/L 13-40 eGFR (test code = 39207-1) 70.8 mL/min/1.73m2 CKD-EPI eGFR (2020). Assuming creatinine has been stable day-to-day for at least three months, the eGFR indicates Category G2 (60 - 89 mL/min/1.73 m2) Lab Interpretation (test code = 53210-9) Abnormal [facility] HospitalPROTHROMBIN TIME / [id number] 02:19:06* Test Item Value Reference Range Interpretation Comme [facility] PROTIME PATIENT (test code = 5964-2) 12.9 See_Comment [Automated Telismaa ge] The system which generated this result transmitted reference range: 12.0 - 14.7 Seconds. The reference range was not used to interpret this result as normal/abnormal. INR (test code = 6301-6) 1.0 Normal INR <1.1; Warfarin Therapeutic range 2.0 to 3.0 or 2.5 to 3.5, depending upon the indications. Lab Interpretation (test code = 91954-6) Normal [facility] HospitalACTIVATED PARTIAL THRMPLAS [id number] 02:19:06* Test Item Value Reference Range Interpretation Comme [facility] APTT Patient (test code = 3173-2) 26 See_Comment [Automated message] The system which generated this result transmitted reference range: 23 - 38 Seconds. The reference range was not used to interpret this result as normal/abnormal. PASCUAL (test code = PASCUAL) The [facility] patient population mean normal value for aPTT is 30 seconds. Lab Interpretation (test code = 94404-6) Normal [facility] WITH [id number] 02:11:43* Test Item Value Reference Range Interpretation Comme nts WBC (test code = 6690-2) 8.15 See_Comment [Automated messa ge] The system which generated this result transmitted reference range: 4.20 - 10.70 10*3/?L. The reference range was not used to interpret this result as normal/abnormal. RBC (test code = 789-8) 3.43 See_Comment L [Automated messa ge] The system which generated this result transmitted reference range: 4.26 - 5.52 10*6/?L. The reference range was not used to interpret this result as normal/abnormal. HGB (test code = 718-7) 7.0 g/dL 12.2-16.4 L HCT (test code = 4544-3) 24.1 % 38.4-49.3 L MCV (test code = 787-2) 70.3 fL 81.7-95.6 L MCH (test code = 785-6) 20.4 pg 26.1-32.7 L MCHC (test code = 786-4) 29.0 g/dL 31.2-35.0 L RDW-SD (test code = 90280-7) 38.8 fL 38.5-51.6 RDW-CV (test code = 788-0) 15.6 % 12.1-15.4 H PLT (test code = 777-3) 394 See_Comment H [Automated messa ge] The system which generated this result transmitted reference range: 150 - 328 10*3/?L. The reference range was not used to interpret this result as normal/abnormal. MPV (test code = 58940-7) 10.5 fL 9.8-13.0 NRBC/100 WBC (test code = 3622557285) 0.0 See_Comment [Automated me ssage] The system which generated this result transmitted reference range: 0.0 - 10.0 /100 WBCs. The reference range was not used to interpret this result as normal/abnormal. NRBC x10^3 (test code = 2016993875) See_Comment [Automated messa ge] The system which generated this result transmitted reference range: 10*3/?L. The reference range was not used to interpret this result as normal/abnormal. GRAN MAT (NEUT) % (test code = 770-8) 58.6 % IMM GRAN % (test code = 5690958344) 0.20 % LYMPH % (test code = 736-9) 28.7 % MONO % (test code = 5905-5) 10.1 % EOS % (test code = 713-8) 1.8 % BASO % (test code = 706-2) 0.6 % GRAN MAT x10^3(ANC) (test code = 1382078243) 4.77 10*3/uL 1.99-6.95 IMM GRAN x10^3 (test code = 2532130704) 0.00-0.06 LYMPH x10^3 (test code = 731-0) 2.34 10*3/uL 1.09-3.23 MONO x10^3 (test code = 742-7) 0.82 10*3/uL 0.36-1.02 EOS x10^3 (test code = 711-2) 0.15 10*3/uL 0.06-0.53 BASO x10^3 (test code = 704-7) 0.05 10*3/uL 0.01-0.09 Lab Interpretation (test code = 04727-8) Abnormal [facility] HospitalType and Screen - ONCE [id number] 01:59:00* Test Item Value Reference Range Interpretation Comme nts ABO & RH (test code = 20) O Positive IAT (test code = 1185) Negative [facility] History and Physical Notes Date/Time Note Provider Source 2023-07-26 07:08:29 COLORECTAL SURGERY HISTORY AND PHYSICAL NOTE REASON FOR REFERRAL: rectal bleeding SUBJECTIVE: 07/26/23: No changes. Patient with rectal bleeding and hemorrhoids. Will possibly need colonoscopy when recovered if anemia does not resolve despite recent colonoscopy in 05/2023: Natty Valle is a 33 year old male here for rectal bleeding. Patient states he has been having bleeding but he recently had to have a blood transfusion due to his Hbg being 7.0. He states he is really tired and he bleeds heavy daily with his bowel movements. He also has abdominal pain. He had a colonoscopy 2 years ago and everything was normal with no polyps removed. Allergies Natty has No Known Allergies. Medications Outpatient Medications Prior to Visit Medication Sig Dispense Refill pantoprazole 40 mg EC tablet Take 1 tablet by mouth in the morning. 90 tablet 1 hydrocortisone 25 mg suppository Insert 1 Suppository into rectum in the morning and 1 Suppository in the evening. 12 Suppository 0 ferrous sulfate 325 mg (65 mg iron) EC tablet Take 1 tablet by mouth in the morning and 1 tablet at noon and 1 tablet in the evening. Take with meals. 30 tablet 0 docusate (COLACE) 100 mg capsule Take 1 capsule by mouth 2 (two) times daily. 60 capsule 1 psyllium-sucrose (METAMUCIL, SUGAR,) powder Take 1 Packet by mouth 3 (three) times daily. No facility-administered medications prior to visit. Histories Past Medical History: Diagnosis Date Migraine Seasonal allergies Past Surgical History: Procedure Laterality Date COLONOSCOPY N/A 04/10/2021 Surgeon: Yaneli De Paz MD; Location: [facility] HI RPR 1ST INGUN HRNA AGE 4 MO-5 YRS REDUCIBLE Bilateral 1987 Social History Socioeconomic History Marital status: Tobacco Use Smoking status: Every Day Types: Cigarettes Smokeless tobacco: Never Tobacco comments: Vapes, quit cigarettes in 2020 Substance and Sexual Activity Alcohol use: Yes Alcohol/week: 28.0 standard drinks of alcohol Types: 28 Cans of beer per week Family History Problem Relation Age of Onset Cancer Maternal Uncle Rectal cancer < 50 YO Review of Systems Physical Exam BP 102/70 | Pulse 67 | Temp 36.2 ?C (97.1 ?F) (Temporal Artery) | Resp 15 | Ht 1.956 m (6' 5") | Wt 116.6 kg (257 lb) | SpO2 97% | BMI 30.48 kg/m? No new Radiology Pathology N/a Assessment/Plan Natty Valle is a 33 year old male who presented for hemorrhoids and anemia requiring blood transfusions. Here for hemorrhoidectomy possible THD today. We discussed post op colonoscopy as well. All risks benefits and alternatives discussed with patient, including the risk of bleeding, infection, damage to surrounding tissues and need for more invasive measures to address these complications, and he is amenable to proceed with procedure. Kasandra Leonardo MD 07/26/2023 7:10 AM Colon and Rectal Surgery [facility] [employer] Notes Date/Time Note Provider Source 2023-07-26 07:58:41 CALLED AND UPDATED PT'S SPOUSE, JOSÉ ANTONIO, AT 0752. - MANUEL CARRILLO. Lew Slaughter RN [facility] [employer] 2023-07-26 07:15:00 Operative Note DATE: 07/26/2023 PREOPERATIVE DIAGNOSIS: Bleeding hemorrhoids POSTOPERATIVE DIAGNOSIS: Internal external two column hemorrhoids with bleeding complication PROCEDURE: 1. Exam under anesthesia 2. Anoscopic evaluation of anal canal 3. Two column hemorrhoidectomy with banding of third column SURGEON: Kasandra Leonardo MD UNDERGROUND PRODUCTION FOREPERSON: none ANESTHESIA: General endotracheal plus exparel/quarter percent bupivacaine with epinephrine pudendal block DESCRIPTION OF PROCEDURE: The patient was taken to the operating room and general anesthesia was induced. He was positioned in the prone jacknife position with all pressure points padded. The buttocks were taped apart and then prepped and draped with Betadine. Ancef flagyle were given. A time out was performed which was correct. On external inspection, external hemorrhoids were seen at the left lateral and right posterior columns, thus the patient was not a THD candidate. No fissures or fistulas were identified. Active bleeding was identified. Digital exam revealed normal rectal tone. Anoscopy revealed normal mucosa with three column internal large bleeding hemorrhoids. The left lateral hemorroid was identified as the largest one and removed first by placing the cushion complex under tension, using bovie cautery to dissect it off the internal sphincter muscle, and excising the cushion complex at its base after an apical, 3-0 vicryl suture SH was used to ligate the apex.. The apical, 3-0 vicryl suture SH was then used to reapproximate the anal mucosa in a running locking fashion. The redundant skin distal to the anoderm was sharply excised with a #15 blade, and mucosal edges were approximated with the running vicryl suture while tacking down to the internal sphincter muscle in a non-locking fashion. These steps were again repeated for the right posterior hemorrhoidal cushion. Once this was completed, hemostasis was ensured over both suture lines. The right anterior internal hemorrhoid was then banded with suture ligation of the vessel apex above the dentate line with a figure of 8 3-0 vicryl suture. Given the swelling seen after banding distal to ligation, the internal component of the cushion was removed with a ligasure device. An additional left sided hemorrhoidal column at the 5 o clock position was also banded staying proximal to the dentate line with a figure of 8 3-0 vicryl suture as swelling of this cushion was seen at the completion of the case. Anal sphincter tone was again tested and remained appropriate with easy two finger dilation. A surgifoam covered in lidocaine dressing was inserted into the anal canal. An abd pad and mesh panties were used to cover the area. He tolerated the procedure well, was extubated in the operating room and transferred to the recovery room in stable condition. I was present and scrubbed in for this entire operation. DRAINS: No drains. COMPLICATIONS: No complications. SPECIMENS: Left lateral hemorrhoid Right posterior hemorrhoid Right anterior internal hemorrhoid Kasandra Leonardo MD 07/26/2023 7:37 AM Colon and Rectal Surgery [facility] 2023-07-23 13:20:00 Images from the original note were not included. Your procedure is at [facility] on 07/26/23. The address is [address] [place] [address], [address]. [facility] nursing staff will call you the workday before your procedure to let you know what time to arrive.On the day of your procedure, please go inside that door and check in at the desk. Please note: You may not travel home alone and that includes in a taxi or by bus. We must speak to your Responsible Adult (who will be picking you up) the morning of your procedure, before the start of your procedure. This person must be an adult over the age of 18 years of age. Do not eat any solid food after midnight the night before surgery. You may have sips of clear liquids such as water, gatorade, and sprite up until two hours before your scheduled procedure. You may take your medications with a sip of water as directed by physician. Anticoagulants will be per physician guidance. Medication Note(s)/Instructions:n/a Pending screening, we may test for COVID. If a patient tests positive, their cases are cancelled and/or rescheduled. COVID SCREENING NOTE: Denies COVID symptoms, no testing required. Additional requests, questions, concerns:CB number provided. Patient verbalized understanding of pre-op instructions and voiced no further questions at this time. [facility] 2023-06-17 13:27:41 See MyChart communication. Dede Campos RN RMATICS ANALYST Dede Campos RN [facility] 2023-06-12 17:05:55 MAGDALENO Chambers discussed dates with Surgeon. Case posted for 07/26/2023 in [place]. Dede Campos RN RMATICS ANALYST Dede Campos RN [facility] 2023-06-11 14:53:49 Natty Valle is a 33 year old male Patient calling requesting a call back from the Clinic or COCOA PRESS OPERATOR Reyes would like to know if she spoke with the surgeon about scheduling surgery for the patient his job is wanting to know and him as well . Please advise and contact the patient . N Macias [facility] 2023-06-05 13:34:12 Patient was called and given results of CT scan. Patient will need date from Dr. Leonardo to scheduled hemorrhoidectomy in [place]. I will contact patient once I receive a date. Patient agreed with plan. RMATICS ANALYST COCOA PRESS OPERATOR-GERONTOLOGY MIDLEVEL PROVIDER [facility] 2023-05-28 12:30:00 Images from the original note were not included. Venipuncture collection performed by clean technique on the right anticubitus. Total of 1 attempts were made. Slight pressure and a bandage/dressing were applied to the site(s). The patient experienced no complications. The following specimens were processed according to instructions and sent to [facility] laboratories per lab order on 05/28/2023 : LT BLUE SST 1 RED LAV 1 PPT DK GREEN (LiHep) DK GREEN (SodH) SNYDER DK BLUE (K2) DK BLUE (S) ACD Blood Culture NIPT/NTD RMATICS ANALYST [facility] 2023-05-24 00:34:34 Pt given printed and verbal discharge instructions regarding sob, blood loss anemia, iron deficiency, encouraged hydration, Prescriptions provided Iron Discussed ibuprofen and to take with food to avoid GI distress. Pt verbalized understanding of instructions, pt awake alert oriented, resp reg unlabored, skin w/d, color appropriate for race, moves all ext well,pt encouraged to follow up with pcp and or GI Advised to seek medical attention for new/prolonged/worsening of symptoms, Symptoms improved No adverse reaction to meds given in ER noted upon discharge PIV d'cd, dressing to site, catheter in tact. Awake, alert oriented, resp reg unlabored, skin w/d, pt leaving amb with steady gait, in no apparent distress, N Vasquez RN [facility] 2023-05-23 23:05:07 Report given to MANUEL Vasquez N Bear RN [facility] 2023-05-23 23:05:04 Received report from Chema JACKSON, assuming care. RMATICS ANALYST [facility] 2023-05-23 19:15:43 Pt to ED stating he has been experiencing fatigue, lightheadedness, body aches, bloody stools, difficulty completing daily tasks, tachycardia, heartburn, abd pain, and SOB x 1 year. Sxs worsening today. Pt states he has bloody stools 99% of the time, had colonoscopy 2 years ago and was dx with anal fissures and hemorrhoids. Has not seen PCP for current sxs. Pt has pale presentation and pale mucous membranes. HOSPITAL Dee Lopez RN [facility] 2023-05-23 19:08:00 Associated Order(s): EKG-12 Lead ROUTINE ONCE Pre-Procedure Diagnose(s): Shortness of breath Post-Procedure Diagnose(s): Shortness of breath [facility] Emergency Department Note Patient Name: Natty Valle Date of : 1990 33 year old male Treatment Room: ID1/ID1 Primary Care Physician: PATIENT DOES NOT HAVE A PCP Patient Escorted by: Mode of Arrival: Personal means [1] EMS Treatment Prior to ED Arrival: DIRECTOR CHILD treatment: None Travel and Exposure Screening: Symptoms Does patient have any of these symptoms?: (not recorded) Exposure Screening Has patient had contact with someone with a communicable disease in the last month?: (not recorded) Diseases exposed to:: (not recorded) Is Patient ?: (not recorded) Exposure Date: (not recorded) Chief Complaint: Chief Complaint Patient presents with Shortness of Breath Body Aches Fatigue History of Present Illness: History provided by: Patient and spouse Shortness of Breath Severity: Moderate Onset quality: Gradual Duration: 2 weeks Timing: Intermittent Progression: Worsening Chronicity: New Relieved by: Lying down Worsened by: Exertion Ineffective treatments: Rest Associated symptoms: no abdominal pain, no chest pain and no fever Rectal Bleeding Quality: Bright red Duration: 6 months Timing: Intermittent Chronicity: Chronic Similar prior episodes: yes Relieved by: Nothing Worsened by: Nothing Ineffective treatments: Time Associated symptoms: dizziness and light-headedness Associated symptoms: no abdominal pain, no fever and no hematemesis Past Medical History/Immunizations: Past Medical History: Diagnosis Date Migraine Seasonal allergies Tetanus received in last 5 years: Yes Childhood immunizations: Up-to-date Allergies: No Known Allergies Past Social History: Tobacco Use Former Smokeless Tobacco: Current user of smokeless tobacco. Comments: Vapes, quit cigarettes in 2020 Alcohol Use Yes; 12.0 standard drinks of alcohol per week; 12 Cans of beer. Past Surgical History: Past Surgical History: Procedure Laterality Date COLONOSCOPY N/A 04/10/2021 Surgeon: Yaneli De Paz MD; Location: [facility] OR LOCATION HI RPR 1ST INGUN HRNA AGE 4 MO-5 YRS REDUCIBLE Bilateral 1987 Review of Systems: Review of Systems Constitutional: Negative for fever. Respiratory: Positive for shortness of breath. Cardiovascular: Positive for palpitations. Negative for chest pain. Gastrointestinal: Negative for abdominal pain, diarrhea, hematemesis and rectal pain. Neurological: Positive for dizziness, weakness and light-headedness. Physical Exam: ED Triage Vitals [05/23/231918] Weight 124.3 kg (274 lb) Actual or estimated Estimated by patient/family report Height 1.956 m (6' 5") BP 124/74 Pulse 95 Resp 20 Temp 36.8 ?C (98.2 ?F) Temp source Oral SpO2 100 % Measured on Room air Physical Exam Vitals and nursing note reviewed. Constitutional: General: He is not in acute distress. Appearance: Normal appearance. He is not ill-appearing, toxic-appearing or diaphoretic. HENT: Head: Normocephalic and atraumatic. Right Ear: Tympanic membrane, ear canal and external ear normal. Left Ear: Tympanic membrane, ear canal and external ear normal. There is no impacted cerumen. Nose: Nose normal. No congestion or rhinorrhea. Mouth/Throat: Mouth: Mucous membranes are dry. Pharynx: Oropharynx is clear. Eyes: General: No scleral icterus. Right eye: No discharge. Left eye: No discharge. Extraocular Movements: Extraocular movements intact. Conjunctiva/sclera: Conjunctivae normal. Pupils: Pupils are equal, round, and reactive to light. Cardiovascular: Rate and Rhythm: Normal rate and regular rhythm. Pulses: Normal pulses. Heart sounds: Normal heart sounds. No murmur heard. No friction rub. No gallop. Pulmonary: Effort: Pulmonary effort is normal. No respiratory distress. Breath sounds: Normal breath sounds. No stridor. No wheezing or rales. Chest: Chest wall: No tenderness. Abdominal: General: Bowel sounds are normal. There is no distension. Palpations: Abdomen is soft. There is no mass. Tenderness: There is no abdominal tenderness. There is no right CVA tenderness, left CVA tenderness or rebound. Musculoskeletal: General: No swelling, tenderness, deformity or signs of injury. Normal range of motion. Cervical back: Neck supple. No rigidity. Right lower leg: No edema. Left lower leg: No edema. Lymphadenopathy: Cervical: No cervical adenopathy. Skin: General: Skin is warm and dry. Capillary Refill: Capillary refill takes 2 to 3 seconds. Coloration: Skin is pale. Findings: No erythema or rash. Neurological: General: No focal deficit present. Mental Status: He is alert and oriented to person, place, and time. Mental status is at baseline. Cranial Nerves: No cranial nerve deficit. Motor: No weakness. Coordination: Coordination normal. Psychiatric: Mood and Affect: Mood normal. Behavior: Behavior normal. Radiology: XR CHEST 1 VW Final Result History: dyspnea Technique: XR CHEST 1 VW was obtained Prior exam: None Findings: No consolidations or effusions. Heart is normal. Tracheal air column is patent. Aorta is normal in size. No pneumothorax. Included bones are intact. IMPRESSION Impression: No acute pulmonary process. R Ordering physician: TJ WU Lab Results: Lab Results CBC WITH DIFF - Abnormal Result Value Ref Range WBC 8.15 4.20 - 10.70 10*3/?L RBC 3.43 (*) 4.26 - 5.52 10*6/?L HGB 7.0 (*) 12.2 - 16.4 g/dL HCT 24.1 (*) 38.4 - 49.3 % MCV 70.3 (*) 81.7 - 95.6 fL MCH 20.4 (*) 26.1 - 32.7 pg MCHC 29.0 (*) 31.2 - 35.0 g/dL RDW-SD 38.8 38.5 - 51.6 fL RDW-CV 15.6 (*) 12.1 - 15.4 % PLT 394 (*) 150 - 328 10*3/?L MPV 10.5 9.8 - 13.0 fL NRBC/100 WBC 0.0 0.0 - 10.0 /100 WBCs NRBC x10 3 <0.01 10*3/?L GRAN MAT (NEUT) % 58.6 % IMM GRAN % 0.20 % LYMPH % 28.7 % MONO % 10.1 % EOS % 1.8 % BASO % 0.6 % GRAN MAT x10 3 (ANC) 4.77 1.99 - 6.95 10*3/uL IMM GRAN x10 3 <0.03 0.00 - 0.06 10*3/uL LYMPH x10 3 2.34 1.09 - 3.23 10*3/uL MONO x10 3 0.82 0.36 - 1.02 10*3/uL EOS x10 3 0.15 0.06 - 0.53 10*3/uL BASO x10 3 0.05 0.01 - 0.09 10*3/uL COMP. METABOLIC PANEL (49015) - Abnormal NA 142 135 - 145 mmol/L K 3.8 3.5 - 5.0 mmol/L CL 107 98 - 108 mmol/L CO2 TOTAL 24 23 - 31 mmol/L AGAP 11 2 - 16 BUN 24 (*) 7 - 23 mg/dL GLUCOSE 93 70 - 110 mg/dL CREATININE 1.34 (*) 0.60 - 1.25 mg/dL TOTAL BILI 0.3 0.1 - 1.1 mg/dL CALCIUM 9.2 8.6 - 10.6 mg/dL T PROTEIN 7.7 6.3 - 8.2 g/dL ALBUMIN 4.6 3.5 - 5.0 g/dL ALK PHOS 61 34 - 122 U/L ALTv 35 5 - 50 U/L AST(SGOT) 34 13 - 40 U/L eGFR 70.8 mL/min/1.73m2 SEDIMENTATION RATE - Abnormal ESR 29 (*) 0 - 10 mm/HR IRON PANEL - Abnormal IRON 37 (*) 50 - 160 ug/dL TIBC 408 250 - 410 ug/dL % FE SAT 9 (*) 20 - 50 % PROTHROMBIN TIME / INR - Normal PROTIME PATIENT 12.9 12.0 - 14.7 Seconds INR 1.0 ACTIVATED PARTIAL THRMPLAS FLORESITA - Normal APTT Patient 26 23 - 38 Seconds TROPONIN I - Normal TROPONIN I 0.007 <=0.034 ng/mL N-TERMINAL PRO-BNP - Normal NT-proBNP 25 <=125 pg/mL TYPE AND SCREEN ABO & RH O Positive IAT Negative ABORH CONFIRMATION (LAB ONLY) ABO & RH O Positive PREPARE PACKED RBC Cross Match Result Compatible ISBT Blood Type Code 5100 Unit Blood Type O Pos Unit Number [id number] Blood Expiration Date & Time [id number] Status Information Issued Product Identification Red Blood Cells Product Code [id number] EKG: If EKG completed, see Procedure Note. Orders and Treatments: Orders Placed This Encounter Procedures XR CHEST 1 VW CBC WITH DIFF PROTHROMBIN TIME / INR ACTIVATED PARTIAL THRMPLAS FLORESITA Type and Screen - ONCE Routine COMP. METABOLIC PANEL (54807) TROPONIN I N-TERMINAL PRO-BNP Sedimentation Rate ABORH Confirmation (Lab Only) Iron Panel Transfusion Reaction Investigation Urinalysis (Spun) Transfusion Reaction Investigation Urinalysis (Spun) Orders Placed This Encounter Medications NaCl 0.9% (NS) bolus infusion 500 mL ferrous sulfate 325 mg (65 mg iron) EC tablet First Provider Eval: ED Events Date/Time Event User Comments 05/23/231909 Medical Screening Begins TJ WU DO -- 05/23/231909 First Provider Evaluation TJ WU DO -- ED COURSE Diagnosis/Impression as of 05/23/23 2306 Shortness of breath Blood loss anemia Iron deficiency Procedures: EKG-12 Lead ROUTINE ONCE Date/Time: 05/23/2023 8:26 PM Performed by: Tj Wu DO Authorized by: Tj Wu DO ECG interpreted by ED Physician in the absence of a travel pta: yes Interpretation: Interpretation: normal Rate: ECG rate: 92 ECG rate assessment: normal Rhythm: Rhythm: sinus rhythm Ectopy: Ectopy: none QRS: QRS axis: Normal QRS intervals: Normal QRS conduction: normal ST segments: ST segments: Normal T waves: T waves: normal Q waves: Abnormal Q-waves: not present MDM: Medical Decision Making Patient was evaluated for the complaint of Shortness of Breath, Body Aches, and Fatigue Diagnoses considered but not limited to: Dyspnea (acute) Hyperventilation Pneumonia Pneumothorax Pulmonary Edema Respiratory Failure (acute) Gastritis (acute) GI Bleeding Hemorrhoids diverticulosis. Iron deficiency Labs:were ordered, and resulted, any relevant abnormalities were considered. Imaging:Ordered, and resulted, any relevant abnormalities were considered. Procedures:were not performed. History, physical exam findings, results of visit, diagnosis, medication regimens and plan of future care have been considered. Additional MDM may be found in the ED course. Vital signs were rechecked before final disposition and determined to be expected for patient's clinical condition.. Amount and/or Complexity of Data Reviewed Labs: ordered. Decision-making details documented in ED Course. Radiology: ordered. Decision-making details documented in ED Course. Risk OTC drugs. Prescription drug management. Flowsheet Documentation: Was seen for shortness of breath. Especially with activity. There is a history of chronic GI blood loss. Patient was pale in appearance. The orthostatics were positive. CBC showed anemia with microcytosis. The unit of packed red blood cells was administered and the patient did tolerate this well. Standing heart rate improved afterwards. The patient's comprehensive metabolic panel did show slight elevation of the creatinine and the BUN. Chest x-ray shows no acute process. Scoring Tools: No data recorded Disposition/Condition: ED Disposition ED Disposition Disch - Home Condition Stable Comment -- Discharge Medications: Patient's Medications START taking these medications FERROUS SULFATE 325 MG (65 MG IRON) EC TABLET Take 1 tablet by mouth in the morning and 1 tablet at noon and 1 tablet in the evening. Take with meals. CONTINUE taking these medications which have NOT CHANGED DOCUSATE (COLACE) 100 MG CAPSULE Take 1 capsule by mouth 2 (two) times daily. LIDOCAINE-HYDROCORTISONE AC 3-1 % (7 GRAM) KIT Insert 1 Applicator into rectum 2 (two) times daily. PSYLLIUM-SUCROSE (METAMUCIL, SUGAR,) POWDER Take 1 Packet by mouth 3 (three) times daily. START taking Modified Medications as Prescribed No medications on file STOP taking these medications No medications on file Follow-up: Contact information for follow-up Ruben Hanson Jr. Specialty: IM-INTERNAL MEDICINE Relationship: PCP - General [address] [place] [address] [place] [id number] [facility]
[2024-03-08] MEDS ORDERED: NA CHLORIDE 0.9% 1,000 ML ONE (01:06)
[2024-03-08] MEDS ORDERED: ONDANSETRON 4 MG/2 ML VIAL ONE (01:06)
[2024-03-08] MEDS ORDERED: HYDROMORPHONE HCL 1 MG/ML INJ ONE (01:06)
[2024-03-08 01:45] LABS: Absolute Eosinophils 0.1 K/uL (0-0.5); Absolute Monocytes 0.6 K/uL (0.1-1.3); Absolute Neutrophil 5.1 K/uL (1.8-8.0); Basophils % 0.4 % (0-1.3); Eosinophils % 0.7 % (0-4.4); Hematocrit 43.1 % (39.6-49.0); Hemoglobin 14.4 g/dL (13.6-17.9); MCH 29.7 pg (27.0-35.0); MCHC 33.5 g/dL (32.0-36.0); MCV 88.6 fL (80-100); MPV 8.7 fL (7.6-11.3); Monocytes % 8.1 % (3.3-12.3); Neutrophils % 65.8 % (41.7-73.7); Platelets 292 thou/uL (152-406); RBC Red Blood Cell Count 4.86 M/uL (4.33-5.43); Red Cell Distribution Width 13.5 % (12.1-15.2)
[2024-03-08 01:55] LABS: Albumin 4.1 g/dL (3.4-5.0); Albumin/Globulin Ratio 1.2 (1.1-1.8); Anion Gap 9.8 mEq/L (5.0-15.0); Bilirubin Total 0.4 mg/dL (0.2-1.0); Globulin 3.4 g/dL (2.3-3.5); Potassium 3.8 mEq/L (3.5-5.1); Protein, Total 7.5 g/dL (6.4-8.2)
[2024-03-08 02:18] LABS: Specific Gravity > 1.030 (1.005-1.030); Sqamous Epithelial <5 /HPF (None Seen); Urine Bacteria None Seen /HPF (<20); Urine Bilirubin NEGATIVE (Negative); Urine Blood Negative (Negative); Urine Clarity Clear (Clear); Urine Color Light-Yellow (Yellow); Urine Culture Reflex Order NOT NEEDED; Urine Glucose NEGATIVE (Negative); Urine Ketones NEGATIVE (Negative); Urine Microscopic Reflex YN ORDER UMIC; Urine Mucus 1+ /HPF (None Seen); Urine Nitrite NEGATIVE (Negative); Urine Protein TRACE (Negative); Urine RBC <5 /HPF (None Seen); Urine Urobilinogen Normal (Normal); Urine WBC <5 /HPF (<5)
--- NOTE | 2024-03-08 02:48 | EDPHYS ---
Physician Documentation [facility] Name: Kilo Moses Age: 34 yrs Sex: Male : 1990 Arrival Date: 03/08/2024 Time: 00:39 Bed 5 Private MD: Sherman Rao HPI: 03/08 00:50 This 34 yrs old Male presents to ER via EMS with complaints of Abdominal Pain. cp 00:50 The patient presents with abdominal pain in the periumbilical area. Onset: The cp symptoms/episode began/occurred suddenly, 1 hour(s) ago. The symptoms do not radiate. 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 Historical: - Allergies: 00:51 No Known Allergies; jj7 - PMHx: 00:51 Umbilical hernia; jj7 - PSHx: 00:45 COLORECTAL; jj7 - Immunization history:: Adult Immunizations not up to date, Client reports having NOT received the Covid vaccine. Flu vaccine is not up to date. - Infectious Disease History:: Denies. - Social history:: Smoking status: Reported history of juuling and/or vaping. Patient uses alcohol, on a daily basis. Patient/guardian denies using street drugs, IV drugs. ROS: 00:55 Abdomen/GI: Positive for abdominal pain, nausea and vomiting, cp 00:55 Constitutional: Negative for body aches, chills, fever, poor PO intake, cp 00:55 Eyes: Negative for injury, pain, redness, and discharge, cp 00:55 ENT: Negative for drainage from ear(s), ear pain, sore throat, difficulty swallowing, difficulty handling secretions, 00:55 Cardiovascular: Negative for chest pain, edema, palpitations, 00:55 Respiratory: Negative for cough, shortness of breath, wheezing, 00:55 Back: Negative for pain at rest, pain with movement, 00:55 : Negative for urinary symptoms, hematuria, testicular pain 00:55 Neuro: Negative for altered mental status, dizziness, headache, weakness, 00:55 All other systems are negative, Exam: 01:00 Constitutional: The patient appears in no acute distress, alert, awake, non-toxic, well cp developed, well nourished, uncomfortable, 01:00 Head/Face: Normocephalic, atraumatic. cp 01:00 Eyes: Periorbital structures: appear normal, Conjunctiva: normal, no exudate, no injection, Sclera: no appreciated abnormality, Lids and lashes: appear normal, bilaterally, 01:00 ENT: External ear(s): are unremarkable, Nose: is normal, Mouth: Lips: moist, Oral mucosa: moist, Posterior pharynx: Airway: no evidence of obstruction, patent, 01:00 Chest/axilla: Inspection: normal, Palpation: is normal, no crepitus, no tenderness, 01:00 Cardiovascular: Rate: normal, Rhythm: regular, 01:00 Respiratory: the patient does not display signs of respiratory distress, Respirations: normal, no use of accessory muscles, no retractions, labored breathing, is not present, Breath sounds: are clear throughout, no decreased breath sounds, 01:00 Abdomen/GI: Inspection: distension, is not seen, Bowel sounds: active, all quadrants, Palpation: soft, in all quadrants, moderate abdominal tenderness, in the umbilical area, voluntary guarding, is elicited in the umbilical area, Hernia: noted in the umbilical area, tenderness, that is moderate, 01:00 Back: CVA tenderness, is absent, 01:00 Skin: no rash present. Vital Signs: 00:45 BP 122 / 75; Pulse 64; Resp 17; Temp 98.7; Pulse Ox 99% ; Weight 124.74 kg; Height 6 jj7 ft. 5 in. ; 01:47 BP 102 / 62; Pulse 64; Resp 16; Pulse Ox 96% ; Pain 0/10; jj7 02:05 BP 113 / 75; Pulse 62; Resp 17; Pulse Ox 98% ; jj7 03:09 BP 112 / 64; Pulse 67; Resp 17; Temp 98.1; Pulse Ox 99% ; Pain 0/10; jj7 00:45 Body Mass Index 32.61 (124.74 kg, 195.58 cm) j 01:47 Pain Scale: Adult jj7 03:09 Pain Scale: Adult jj7 MDM: 00:47 Medical Screening Exam initiated cp 02:46 Data reviewed: vital signs, nurses notes, lab test result(s), radiologic studies, CT cp scan, I have discussed the patient's presentation/case with the attending Emergency Department Physician; and as a result, I will discharge patient. 02:46 Differential diagnosis: appendicitis, bowel obstruction, cholecystitis, Cholelithiasis, cp non-specific abd pain, pancreatitis, Pyelonephritis, Ureterolithiasis, urinary tract infection. I considered the following discharge prescriptions or medication management in the emergency department Medications were administered in the Emergency Department. See MAR. Counseling: I had a detailed discussion with the patient and/or guardian regarding the historical points, exam findings, and any diagnostic results supporting the discharge/admit diagnosis, lab results, radiology results, the need for outpatient follow up, for definitive care, a general surgeon, to return to the emergency department if symptoms worsen or persist or if there are any questions or concerns that arise at home. Response to treatment: the patient's symptoms have resolved after treatment, the patient's pain is gone, and as a result, I will discharge patient. Special discussion: recommend light duty and f/u with general surgery. 03/08 01:46 Order name: CBC with Automated Diff; Complete Time: 02:45 EDMI 03/08 01:55 Order name: Comprehensive Metabolic Panel; Complete Time: 02:45 EDMI 03/08 02:45 Interpretation: Normal except: CL 109; GLUC 119; BUN 26; CRE 1.42; GFR 66; AST 39; ALT cp 85. 03/08 01:55 Order name: Lipase; Complete Time: 02:45 EDMS 03/08 02:17 Order name: CBC with Automated Diff EDMI 03/08 02:17 Order name: Comprehensive Metabolic Panel EDMI 03/08 02:17 Order name: Lipase EDMI 03/08 02:17 Order name: Urinalysis w/ reflexes; Complete Time: 02:45 EDMS 03/08 02:15 Order name: Abdomen EDMI 03/08 00:48 Order name: IV Saline Lock; Complete Time: 01:13 cp 03/08 00:48 Order name: Labs collected and sent; Complete Time: 01:24 cp Administered Medications: 01:13 Not Given (Patient Refused): hydromorphone1 mg IVP once jj7 01:13 Drug: NS 0.9% IV 1000 ml IV at 1 bolus Per protocol; to be given as a bolus over 60 jj7 minutes Route: IV; Rate: 1 bolus; Site: left antecubital; 02:30 Follow up: IV Status: Completed infusion jj7 01:13 Not Given (Patient Refused): ondansetron 4 mg IVP once; over 2 minutes jj7 Disposition Summary: 03/08/24 02:47 Discharge Ordered Notes: Location: Home cp Problem: new cp Symptoms: have improved cp Condition: Stable cp Diagnosis - Umbilical hernia without obstruction or gangrene cp - Abdominal pain, unspecified cp - Nausea with vomiting, unspecified cp Followup: cp - With: Tanner Rivera MD - When: 2 - 3 days - Reason: Recheck today's complaints Discharge Instructions: - Discharge Summary Sheet cp - Abdominal Pain, Adult cp - Nausea and Vomiting, Adult cp - Umbilical Hernia, Adult cp Forms: - Medication Reconciliation Form cp - Antibiotic Education cp - Prescription Opioid Use cp - Patient Portal Instructions cp - Leadership Thank You Letter cp Prescriptions: - Anaprox DS 550 mg Oral Tablet - take 1 tablet ORAL route every 12 hours As needed; 20 tablet; Refills: 0, cp Product Selection Permitted Signatures: Dispatcher [employer] EDMS Sherman Reza PA PA cp Johnson, Juwairiyah RN RN jj7 Corrections: (The following items were deleted from the chart) 00:52 00:51 PMHx: None; jj7 jj7 02:23 02:10 CBC+H.LAB.BRZ ordered. EDMS EDMS 02:23 02:10 COMPREHENSIVE METABOLIC PANEL+C.LAB.BRZ ordered. EDMS EDMS 02:23 02:10 LIPASE+C.LAB.BRZ ordered. EDMS EDMS 02:23 02:10 Urinalysis+U.LAB.BRZ ordered. EDMS EDMS 02:25 02:10 Abdomen Pelvis W Con+CT.RAD.BRZ ordered. EDMS EDMS
--- NOTE | 2024-03-08 02:48 | ER ---
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 WAS HAVING SEVERE ABD PAIN. TRIED TO DRINK SOME WATER AND VOMITED IT UP. Coronavirus screen: At this time, the client does not indicate any symptoms associated with coronavirus-19. Ebola Screen: No symptoms or risks identified at this time. Initial Sepsis Screen: Does the patient meet any 2 criteria? No. Patient's initial sepsis screen is negative. Does the patient have a suspected source of infection? No. Patient's initial sepsis screen is negative. Risk Assessment: Do you want to hurt yourself or someone else? Patient reports no desire to harm self or others. Onset of symptoms was March 07, 2024 at 22:30. 00:45 Method Of Arrival: EMS: [facility] jj7 00:45 Acuity: JOSE 4 jj7 Triage Assessment: 00:45 General: Appears in no apparent distress. uncomfortable, Behavior is calm, cooperative, jj7 appropriate for age. Pain: Complains of pain in umbilical area Pain currently is 6 out of 10 on a pain scale. GI: Abdomen is flat, SMALL UMBILICAL HERNIA NOTED. PT STATES PA PAGE PUSHED IT BACK IN BECAUSE IT WAS HARD A BALL NOT IT'S SOFT Abd is soft and non tender UMBILICAL HERNIA. Historical: - Allergies: 00:51 No Known Allergies; jj7 - PMHx: 00:51 Umbilical hernia; jj7 - PSHx: 00:45 COLORECTAL; jj7 - Immunization history:: Adult Immunizations not up to date, Client reports having NOT received the Covid vaccine. Flu vaccine is not up to date. - Infectious Disease History:: Denies. - Social history:: Smoking status: Reported history of juuling and/or vaping. Patient uses alcohol, on a daily basis. Patient/guardian denies using street drugs, IV drugs. Screenin:45 [facility] ED Fall Risk Assessment (Adult) History of falling in the last 3 months, jj7 including since admission No falls in past 3 months (0 pts) Confusion or Disorientation No (0 pts) Intoxicated or Sedated No (0 pts) Impaired Gait No (0 pts) Mobility Assist Device Used No (0 pt) Altered Elimination No (0 pt) Score/Fall Risk Level 0 - 2 = Low Risk Oriented to surroundings, Maintained a safe environment, Educated pt \T\ family on fall prevention, incl call for assistance when getting out of bed, Assessed \T\ reinforced patient's understanding of fall precautions. Abuse screen: Denies threats or abuse. Nutritional screening: No deficits noted. Tuberculosis screening: No symptoms or risk factors identified. Assessment: 00:45 Reassessment: SEE TRIAGE ASSESSMENT. jj7 Vital Signs: 00:45 BP 122 / 75; Pulse 64; Resp 17; Temp 98.7; Pulse Ox 99% ; Weight 124.74 kg; Height 6 j ft. 5 in. ; 01:47 BP 102 / 62; Pulse 64; Resp 16; Pulse Ox 96% ; Pain 0/10; jj7 02:05 BP 113 / 75; Pulse 62; Resp 17; Pulse Ox 98% ; jj7 03:09 BP 112 / 64; Pulse 67; Resp 17; Temp 98.1; Pulse Ox 99% ; Pain 0/10; jj7 00:45 Body Mass Index 32.61 (124.74 kg, 195.58 cm) jj7 01:47 Pain Scale: Adult jj7 03:09 Pain Scale: Adult jj7 ED Course: 00:45 Arm band placed on right wrist. Patient placed in an exam room, on a stretcher. jj7 00:45 Patient has correct armband on for positive identification. Bed in low position. Call j7 light in reach. Provided Education on: USE OF CALL CAVANAUGH. 00:46 Patient arrived in ED. jj7 00:46 Sherman Reza PA is PHCP. cp 00:46 Sherman Quintero MD is Attending Physician. cp 00:51 Triage completed. jj7 01:01 Inserted saline lock: 20 gauge in left antecubital area, using aseptic technique. Blood ha1 collected. Flushed with 10 mL NS. 01:02 Pawan, Juwairiyah, RN is Primary Nurse. jj7 02:15 Abdomen In Process Unspecified. EDMS 02:46 Tanner Rivera MD is Referral Physician. cp 03:09 No provider procedures requiring assistance completed. IV discontinued, intact, jj7 bleeding controlled, No redness/swelling at site. Pressure dressing applied. Administered Medications: 01:13 Not Given (Patient Refused): hydromorphone1 mg IVP once jj7 01:13 Drug: NS 0.9% IV 1000 ml IV at 1 bolus Per protocol; to be given as a bolus over 60 jj7 minutes Route: IV; Rate: 1 bolus; Site: left antecubital; 02:30 Follow up: IV Status: Completed infusion jj7 01:13 Not Given (Patient Refused): ondansetron 4 mg IVP once; over 2 minutes jj7 Medication: 00:45 VIS not applicable for this client. jj7 Outcome: 02:47 Discharge ordered by MD. cp 03:09 Discharged to home ambulatory, with family, jj7 03:09 Condition: improved 03:09 Discharge instructions given to patient, Instructed on discharge instructions, follow up and referral plans. medication usage, Demonstrated understanding of instructions, follow-up care, medications, Prescriptions given X 1, 03:14 Patient left the ED. jj7 Signatures: Dispatcher [employer] EDSD Sherman Reza PA PA cp Ayala, Heidy, RN RN ha1 Jeanette Villalta RN RN jj7 Corrections: (The following items were deleted from the chart) 00:52 00:51 PMHx: None; jj7 jj7
[2024-03-08 03:24] VITALS: BP 112/64; TEMP 98.1; O2SAT 99
--- NOTE | 2024-03-08 05:59 | RAD REPORT ---
EXAM: CT Abdomen and Pelvis With Intravenous Contrast CLINICAL HISTORY: Umbilical pain. TECHNIQUE: Axial computed tomography images of the abdomen and pelvis with intravenous contrast. Sagittal and coronal reformatted images were created and reviewed. This CT exam was performed using one or more of the following dose reduction techniques: automated exposure control, adjustment of the mA a nd/or kV according to patient size, and/or use of iterative reconstruction technique. COMPARISON: No relevant prior studies available. FINDINGS: Lung bases: Unremarkable. No mass. No consolidation. ABDOMEN: Liver: The liver is diffusely low in density compatible with steatosis. Gallbladder and bile ducts: Unremarkable. No calcified stones. No ductal dilation. Pancreas: Unremarkable. No mass. No ductal dilation. Spleen: Unremarkable. No splenomegaly. Adrenals: Unremarkable. No mass. Kidneys and ureters: Unremarkable. Normal renal cortical enhancement. No calculi. No hydronephros is. Stomach and bowel: Moderate stool. No bowel obstruction. No appreciable mucosal thickening. The uri nary bladder is decompressed. PELVIS: Appendix: Normal caliber appendix. No findings to suggest acute appendicitis. Bladder: Unremarkable. No mass. Reproductive: Unremarkable as visualized. ABDOMEN and PELVIS: Intraperitoneal space: Unremarkable. No free air. No significant fluid collection. Bones/joints: No acute fracture. No dislocation. Soft tissues: Small fat-containing periumbilical hernia. Vasculature: Unremarkable. No abdominal aortic aneurysm. Lymph nodes: Unremarkable. No enlarged lymph nodes. IMPRESSION: 1. No acute inflammatory process identified within the abdomen and pelvis. 2. Small fat-containing periumbilical hernia. 3. Other findings as above. Electronically signed by: Clementina Chacon MD 03/08/2024 02:13 AM [facility] Due to temporary technical issues with the PACS/RICS Software reporting system, reports are being chi d by the in-house radiologist without review as a courtesy to ensure prompt reporting the interpreting radiologist is fully responsible for the content of the report. Transcribed Date/Time: 03/08/2024 5:58 AM
== END 2024-03-08 03:14 | disposition home or self-care (01) ==
LOC: ER 00:39
DX: K42.9 Umbilical hernia without obstruction or gangrene (principal); R11.2 Nausea with vomiting, unspecified; Z28.310 Unvaccinated for COVID-19
CPT/HCPCS: 85025; 81001; 36415; 83690; 80053; 74177; 96360; 99284; Q9967; J7030; J1171; J2405

== ENCOUNTER 2024-03-18 07:24 | Day surgery (SDC) | payer BC ==
--- NOTE | 2024-03-17 13:36 | RAD REPORT ---
EXAMINATION: TWO VIEW CHEST XR CLINICAL INDICATION: PREOP TECHNIQUE: 2 views of the chest was performed. COMPARISON: No prior exam. FINDINGS: The lungs are well inflated and clear. The heart is normal in size. No displaced fractures evident. IMPRESSION: No acute or significant abnormalities.
[2024-03-18] MEDS: Ringers Lactate 1,000 ML IV ONE (08:12)
[2024-03-18] MEDS ORDERED: MIDAZOLAM HCL 2 MG/2 ML INJ ONE (09:10)
[2024-03-18] MEDS ORDERED: propofoL 200 MG/20 ML VIAL IV ONE (09:10)
[2024-03-18] MEDS ORDERED: ONDANSETRON 4 MG/2 ML VIAL ONE (09:10)
[2024-03-18] MEDS ORDERED: ROCURONIUM 50 MG/5 ML VIAL IV ONE (09:10)
[2024-03-18] MEDS ORDERED: FENTANYL CITR 100 MCG/2 ML ONE (09:10)
[2024-03-18] MEDS: CEFAZOLIN SODIUM 1 GM/VIAL ONE (09:44)
[2024-03-18] MEDS ORDERED: dexAMETHasone 10 MG/ML VIAL ONE (09:53)
[2024-03-18] MEDS ORDERED: LIDOCAINE 2% MPF 5 ML VIAL ONE (09:53)
[2024-03-18] MEDS ORDERED: GLYCOPYRROLATE 0.2 MG/ML SYR ONE ×2 (09:55→10:22)
[2024-03-18] MEDS ORDERED: NEOSTIGMINE 1 MG/ML -10 ML VIAL ONE (10:22)
[2024-03-18] MEDS ORDERED: KETOROLAC 30 MG/ML INJ ONE (10:23)
--- NOTE | 2024-03-18 10:32 | P.BOP ---
Preoperative diagnosis: incarcerated umbilical hernia 4 cm Postoperative diagnosis: same Primary procedure: Laparoscopic repair of incarcerated umbilical hernia with mesh Estimated blood loss: <10cc Specimen: sac Findings: as above, incarcerated omemtum Anesthesia: General Complications: None Implants: ventralex medium Transferred to: Recovery Room Condition: Good
[2024-03-18 11:19] VITALS: O2SAT 100
[2024-03-18 12:47] VITALS: BP 122/65; TEMP 97
--- NOTE | 2024-03-18 22:07 | OP ---
Date of Procedure: 03/18/2024 Surgeon: Boo Campos MD Preoperative Diagnosis: Incarcerated umbilical hernia about 4 cm. Postoperative Diagnosis: Incarcerated umbilical hernia about 4 cm. Procedure: Laparoscopic repair of tender incarcerated umbilical hernia with mesh. Estimated Blood Loss: Less than 10 cc. Specimen: Hernia sac. Findings: Incarcerated omentum. Anesthesia: General plus local. Implant: Medium Ventralex mesh. Indications: This is a case of a 34-year-old patient who came to us with above diagnosis. Fully exp lained the benefits, alternatives, and risks of laparoscopic, possible open repair of incarcerated um bilical hernia, which include, but not limited to infection, bleeding, damage to adjacent structures, anesthesia complication, recurrence, HI, and even . He also understands this may not relieve t he symptoms. He might need more than 1 surgical intervention. We also explained to him, we might us e mesh. So, the pros and cons of mesh were discussed with the patient and all the questions answered to his satisfaction. He signed a consent. Description Of Procedure: The patient was brought to the operating room, placed in supine position. Anesthesia was without complication. Abdominal area was prepped and draped in a sterile fashion. L ocal anesthesia was applied followed by sharp incision of the skin after time-out in the periumbilica l region. Incision was carried down. We noticed the hernia sac. We cannot reduce that, so we opene d the hernia sac, noticed incarcerated omentum. Most of it could be saved. The rest is ligated. He rnia sac was removed. We noticed the fascial edges to be friable, so we decided to use a mesh. So, I placed a Vicryl #1 [id number] multiple times, put a Goldie trocar through that incision, obtai myles pneumoperitoneum. Then, after that with the camera in, we proceeded to a place 5 mm trocar in th e left and right side of the abdomen. Changed the camera in that area, visualized the size of the he rnia. We noticed that we used a medium mesh. We can overlap the area about 3-5 cm. At that moment, I proceeded to put a mesh through the Goldie trocar, removed the Goldie trocar. Then, with the sutu res being pulled, we obtained pneumoperitoneum and then secured the mesh to the anterior abdominal wa ll with SorbaFix fixation device. I removed the straps, closed the fascial edges with #1 Vicryl, martha ing sure we have AirSeal and then laparoscopically after obtaining the pneumoperitoneum again, furthe r reinforced the mesh to the anterior abdominal wall with SorbaFix. No bleeding. The area of the om entum looks with no bleeding needed, no enterotomies. At that moment under direct visualization, we deflated the pneumoperitoneum. Then, after that, closed the subcutaneous tissue with 3-0 chromic and skin in a subcuticular fashion with 3-0 chromic and Steri-Strips on top. Sponge count and instrumen t counts were correct. The patient tolerated the procedure well. The patient was sent to recovery i n stable condition. NOELLE/EMILY Voice ID: [id number] Report ID: [id number]
--- NOTE | 2024-03-19 08:36 | DS ---
Date of Discharge: 03/18/2024 Diagnosis: Tender incarcerated umbilical hernia. Procedure: Laparoscopic repair of tender incarcerated umbilical hernia with mesh. Condition: Stable. Disposition: Home. Activity: As tolerated. No heavy lifting. Discharge Instructions: Follow up in my office in 1 week. Call for appointment at [phone]. Keep a chino dry for 48 hours, then may shower. Keep Steri-Strips intact. NOELLE/EMILY Voice ID: [id number] Report ID: [id number]
== END 2024-03-18 12:14 | disposition home or self-care (01) ==
LOC: OR 07:24
PROVIDERS: ATTEND Surgery
PROC: 0WUF4JZ Supplement Abdominal Wall with Synthetic Substitute, Percutaneous Endoscopic Approach (ICD-10-PCS; principal; 2024-03-18 08:45)
DX: K42.0 Umbilical hernia with obstruction, without gangrene (principal)
CPT/HCPCS: 88302; 71046; 49594; J2704; J2710; J2003; J2250; J3010; J1100; J2405; J7120; J0690